=== PATIENT | male | born 1960 | race Caucasian/White ===

== ENCOUNTER 2017-10-25 21:50 | Observation (INO) ==
--- NOTE | 2017-10-25 22:19 | Emergency Department Note ---
Addendum entered and electronically signed by Campbell Whipple DO 10/26/17 01:20 : Gallbladder wall is thickened, however normal hepatic panel and no pain on palpation of the right upper quadrant. No fever. Will need a gallbladder ultrasound in the AM. Original Note: Disposition Clinical Impression: Elevated troponin, Peripheral edema Dyspnea Qualifiers: Dyspnea type: dyspnea on exertion Qualified Code(s): R06.09 - Other forms of dyspnea Acute exacerbation of CHF (congestive heart failure) Qualifiers: Congestive heart failure type: diastolic Qualified Code(s): I50.33 - Acute on chronic diastolic (congestive) heart failure Disposition: Admitted As Inpatient Condition: Good General Adult HPI - General Chief complaint: ED Extremity Problem,Nontraumatic Stated complaint: "swelling all over" Time Seen by Provider: 10/25/17 21:52 Source: patient Limitations: no limitations Nursing Notes Reviewed: Yes Vital Signs Reviewed: Yes - History of Present Illness HPI Narrative: 57-year-old male who reports he has had approximately 3 days of shortness of breath and body swelling. He reports significant swelling in his lower extremities and feeling a tightness in his abdomen and in his arms. He denies any history of this in the past. He states the only medication he currently takes his meloxicam for arthritis. He denies any chest pain. He has been coughing up some clear sputum. Denies having a fever. No nausea or vomiting. No chest pain. No history of cardiac disease. No history of congestive heart failure. He has been urinating without difficulty. Pain Scale: 0 Improves with: nothing Worsens with: nothing Associated symptoms: Reports: denies other symptoms Treatments Prior to Arrival: none - Related Data Previous Rx's Medication Instructions Recorded Albuterol Sulfate [Albuterol 2 puff IH Q6HR PRN #1 [id number].aer.[id number] 10/27/17 Inhaler] Aspirin Enteric Coated [Aspirin EC] 81 mg PO DAILY #30 tablet. 10/27/17 Furosemide [Lasix] 20 mg PO DAILY #30 tablet 10/27/17 Nicotine Patch [Nicoderm] 21 mg TD DAILY #30 patch.td24 10/27/17 Allergies Allergy/AdvReac Type Severity Reaction Status Date / Time No Known Allergies Allergy Verified 10/13/15 15:28 All systems ED: reviewed and negative except as stated. Constitutional: Denies: fever ENT ED: Denies: throat pain Cardiovascular: Denies: chest pain Respiratory: Reports: cough, dyspnea. Denies: wheezes Gastrointestinal: Denies: abdominal pain, nausea, vomiting, diarrhea Integumentary: Denies: rash Past Medical History - Past Medical History Medical history: Reports: COPD, renal disease - Social History Smoking Status: Current every day smoker Smokeless Tobacco Status: No Alcohol use: Reports: occasionally Drug use: Reports: marijuana Physical Exam - General Limitations: no limitations General appearance: alert, in no apparent distress - Head Head exam: atraumatic - Eye Eye exam: Present: normal appearance, PERRL - ENT ENT exam: normal exam, normal oropharynx - Neck Neck exam: Present: normal inspection - Chest Chest inspection: Present: normal inspection - Respiratory Respiratory exam: Present: normal lung sounds bilaterally. Absent: respiratory distress - Cardiovascular Cardiovascular exam: Present: regular rate, normal rhythm - Abdominal Exam Abdominal exam: Present: soft, Non-Tender - Extremities Exam Extremities exam: Present: pedal edema (3+ bilateral. no warmth or erythema) - Back Exam Back exam: Present: normal inspection - Neurological Exam Neurological exam: Present: alert, oriented X3, CN II-XII intact. Absent: motor sensory deficit - Psychiatric Psychiatric exam: Present: normal affect, normal mood - Skin Skin exam: Present: warm, dry Course Course Narrative: 57-year-old male with symptoms consistent with congestive heart failure. We will look for the etiology of why he is in congestive heart failure. Troponin elevated. No CP. Gave aspirin. CTA negative. No signs of pleural edema or vascular congestion. Concern for right heart failure. Will place on heparin in case this is caused by an ischemic event. No EKG changes. Accepted by kavon Vital Signs Temperature 98.2 F 10/25/17 21:55 Pulse Rate 60 10/25/17 21:55 Respiratory Rate 18 10/25/17 21:55 Blood Pressure 144/81 10/25/17 21:55 O2 Sat by Pulse Oximetry 98 10/25/17 21:55 Temperature 97.8 F 10/27/17 10:24 Pulse Rate 48 10/27/17 10:24 Respiratory Rate 16 10/27/17 10:24 Blood Pressure 110/74 10/27/17 10:24 O2 Sat by Pulse Oximetry 98 10/27/17 10:24 Oxygen Delivery Oxygen Delivery Room Air Medical Decision Making - Medical Records Medical records reviewed: Yes I reviewed the patient's medical records. - Lab Data Lab results reviewed: Yes I reviewed the patient's lab results. Result diagrams: 10/27/17 04:48 10/27/17 04:48 Lab Results 10/25/17 10/25/17 10/25/17 Range/Units 22:07 22:07 22:07 WBC 6.3 (4.3-11.1) K/mcL RBC 3.11 L (4.19-5.50) M/mcL Hgb 9.8 L (12.9-16.9) g/dL Hct 29.2 L (37.5-50.1) % MCV 93.9 (83.0-100.0) fL MCH 31.5 (28.0-33.3) pg MCHC 33.6 (31.6-35.5) g/dL RDW 13.1 (11.5-14.5) % Plt Count 262 (140-400) K/mcL MPV 9.1 L (9.4-12.4) fL Immature Gran % 0.6 (0-4) % Seg Neutrophils % 50.6 % Lymphocytes % 30.9 % Monocytes % 14.3 % Eosinophils % 3.0 % Basophils % 0.6 % Neutrophils # 3.2 (1.6-8.9) K/mcL Lymphocytes # 2.0 (0.6-4.6) K/mcL Monocytes # 0.9 (0.0-1.3) K/mcL Eosinophils # 0.2 (0.0-0.6) K/mcL Basophils # 0.0 (0.0-0.2) K/mcL Platelet Estimate Normal (Normal) PT 11.7 (9.4-12.1) Seconds INR 1.1 APTT 32.7 (26.0-36.0) Seconds D-Dimer 1165 H (0-500) ng/mLFEU Sodium (136-145) mEq/L Potassium (3.5-5.1) mEq/L Chloride (98-107) mEq/L Carbon Dioxide (23-29) mEq/L BUN (6-20) mg/dL Creatinine (0.70-1.30) mg/dL Est GFR ( Amer) (> 60) Est GFR (Non-Af Amer) (> 60) BUN/Creatinine Ratio (6-26) Glucose (70-105) mg/dL Calculated Osmolality (280-300) Calcium (8.6-10.3) mg/dL Total Bilirubin (0.3-1.0) mg/dL Direct Bilirubin (0.0-0.2) mg/dL Indirect Bilirubin (0.0-1.2) mg/dL AST (13-39) Units/L ALT (7-52) Units/L Alkaline Phosphatase (34-104) Units/L Troponin I (< 0.04) ng/mL B-Natriuretic Peptide 180 H (Less than 100) pg/mL Serum Total Protein (6.4-8.9) g/dL Albumin (3.5-5.7) g/dL Globulin (2.4-3.5) g/dL Albumin/Globulin Ratio (1.1-2.2) 10/25/17 10/25/17 Range/Units 22:07 22:07 WBC (4.3-11.1) K/mcL RBC (4.19-5.50) M/mcL Hgb (12.9-16.9) g/dL Hct (37.5-50.1) % MCV (83.0-100.0) fL MCH (28.0-33.3) pg MCHC (31.6-35.5) g/dL RDW (11.5-14.5) % Plt Count (140-400) K/mcL MPV (9.4-12.4) fL Immature Gran % (0-4) % Seg Neutrophils % % Lymphocytes % % Monocytes % % Eosinophils % % Basophils % % Neutrophils # (1.6-8.9) K/mcL Lymphocytes # (0.6-4.6) K/mcL Monocytes # (0.0-1.3) K/mcL Eosinophils # (0.0-0.6) K/mcL Basophils # (0.0-0.2) K/mcL Platelet Estimate (Normal) PT (9.4-12.1) Seconds INR APTT (26.0-36.0) Seconds D-Dimer (0-500) ng/mLFEU Sodium 138 (136-145) mEq/L Potassium 3.6 (3.5-5.1) mEq/L Chloride 109 H (98-107) mEq/L Carbon Dioxide 24 (23-29) mEq/L BUN 17 (6-20) mg/dL Creatinine 0.86 (0.70-1.30) mg/dL Est GFR ( Amer) > 60 (> 60) Est GFR (Non-Af Amer) > 60 (> 60) BUN/Creatinine Ratio 20 (6-26) Glucose 113 H (70-105) mg/dL Calculated Osmolality 288 (280-300) Calcium 8.2 L (8.6-10.3) mg/dL Total Bilirubin 0.5 (0.3-1.0) mg/dL Direct Bilirubin 0.1 (0.0-0.2) mg/dL Indirect Bilirubin 0.4 (0.0-1.2) mg/dL AST 15 (13-39) Units/L ALT 10 (7-52) Units/L Alkaline Phosphatase 52 (34-104) Units/L Troponin I 0.18 H* (< 0.04) ng/mL B-Natriuretic Peptide (Less than 100) pg/mL Serum Total Protein 5.6 L (6.4-8.9) g/dL Albumin 3.3 L (3.5-5.7) g/dL Globulin 2.3 L (2.4-3.5) g/dL Albumin/Globulin Ratio 1.4 (1.1-2.2) - Radiology Data Radiology results reviewed: Yes I reviewed the patient's radiology results. - EKG Data EKG #1 EKG attestation: Yes I reviewed and interpreted this EKG. EKG shows normal: sinus rhythm Rate: normal Rhythm: NSR [place]/QRS: normal When compared to previous EKG there are: no significant changes Interpretation: nonspecific ST-T wave changes Attestation Statement - Attestation Attestation: I examined this patient and my medical decision-making was reviewed with the Resident Physician. I agree with the documented findings, disposition and treatment plan as described except to the extent set forth below. Findings consistent with heart failure. We will start heparin drip. Patient will be admitted to hospital for further evaluation. I spent greater than 35 minutes of critical care time actively resuscitating this acutely ill patient suffering from heart failure requiring a heparin drip. This was excluding billable procedures.
[2017-10-25 22:37] LABS: Basophils % 0.6 %; Eosinophils # 0.2 K/mcL (0.0-0.6); Hematocrit 29.2 % (37.5-50.1); Hemoglobin 9.8 g/dL (12.9-16.9); Immature Granulocytes % 0.6 % (0-4); Lymphocytes % 30.9 %; Mean Corpuscular HGB Conc 33.6 g/dL (31.6-35.5); Mean Corpuscular Hemoglobin 31.5 pg (28.0-33.3); Mean Corpuscular Volume 93.9 fL (83.0-100.0); Mean Platelet Volume 9.1 fL (9.4-12.4); Monocytes # 0.9 K/mcL (0.0-1.3); Monocytes % 14.3 %; Neutrophils # 3.2 K/mcL (1.6-8.9); Platelet Count 262 K/mcL (140-400); Red Blood Count 3.11 M/mcL (4.19-5.50); Red Cell Distribution Width 13.1 % (11.5-14.5); Segmented Neutrophils % 50.6 %
[2017-10-25 22:42] LABS: INR 1.1; Prothrombin Time 11.7 Seconds (9.4-12.1)
[2017-10-25 22:44] LABS: Activated Partial Thrombo Time 32.7 Seconds (26.0-36.0)
[2017-10-25 22:54] LABS: Alanine Aminotransferase 10 Units/L (7-52); Albumin 3.3 g/dL (3.5-5.7); Albumin/Globulin Ratio 1.4 (1.1-2.2); Alkaline Phosphatase 52 Units/L (34-104); Aspartate Amino Transferase 15 Units/L (13-39); BUN/Creatinine Ratio 20 (6-26); Bilirubin,Direct 0.1 mg/dL (0.0-0.2); Bilirubin,Indirect 0.4 mg/dL (0.0-1.2); Bilirubin,Total 0.5 mg/dL (0.3-1.0); Blood Urea Nitrogen 17 mg/dL (6-20); Calcium 8.2 mg/dL (8.6-10.3); Carbon Dioxide 24 mEq/L (23-29); Chloride 109 mEq/L (98-107); Globulin 2.3 g/dL (2.4-3.5); Glucose 113 mg/dL (70-105); Osmolality,Calculated 288 (280-300); Potassium 3.6 mEq/L (3.5-5.1); Sodium 138 mEq/L (136-145); Total Protein 5.6 g/dL (6.4-8.9); eGFR For African Americans > 60 (> 60); eGFR For Non-African Americans > 60 (> 60)
[2017-10-25 22:57] LABS: Platelet Estimate Normal (Normal)
[2017-10-26] MEDS ORDERED: Furosemide 20 MG/2 ML VIAL IVP ONE (01:01)
[2017-10-26] MEDS ORDERED: Aspirin 325 MG TABLET PO ONE (01:01)
[2017-10-26] MEDS ORDERED: *HR* Heparin 5,000 UNIT/ML VIAL IVP PRN ×2 (01:13)
[2017-10-26] MEDS ORDERED: *HR* Heparin 5,000 UNIT/ML VIAL IVP ONE (01:13)
[2017-10-26] MEDS: Heparin 25,000 UNIT/500 ML D5W 25,000 UNIT/500 ML BAG IVC SCH (01:30)
[2017-10-26] MEDS ORDERED: Ondansetron 4 MG/2 ML VIAL IVP PRN (04:24)
[2017-10-26] MEDS ORDERED: Naloxone 0.4 MG/ML INJ IVP PRN (04:24)
--- NOTE | 2017-10-26 05:06 | Internal Med History&Physical ---
Date of Encounter: 10/26/17 Time of Encounter: 05:00 Assessment and Plan (1) Acute exacerbation of CHF (congestive heart failure) Current visit: Yes Status: Acute Based on clinical picture - TTE pending. Patient received 20mg IV lasix in ED, diuresing on arrival to floor. Unclear etiology, concern for possible ischemic event given elevated troponin. - TTE ordered, pending - Cardiology consulted, appreciate assistance Qualifiers: Congestive heart failure type: unspecified congestive heart failure type Qualified Code(s): I50.9 - Heart failure, unspecified (2) Elevated troponin Current visit: Yes Status: Acute Troponin 0.18 - could be strain from CHF, however ischemia is also possible. No chest pain. EKG without ischemic changes - Trend troponin - ASA, heparin - Cardiology consulted, appreciate assistance (3) Dyspnea Current visit: Yes Status: Acute Secondary to COPD, likely new CHF, etc Qualifiers: Dyspnea type: dyspnea on exertion Qualified Code(s): R06.09 - Other forms of dyspnea (4) Peripheral edema Current visit: Yes Status: Acute Likely secondary to new CHF - TTE pending. Internal Medicine - H&P: HPI Chief complaint: Shortness of breath Admitted From: Emergency Dept Plans for Post Hospital Care: Home History of present illness: Mr. Olson is a 57 year old male with history of COPD who presented to the ED this morning with complaint of shortness of breath and edema which have worsened over the past three days. He developed a URI one week ago and had a cough productive of white phlegm. He noticed three days ago that his lower extremities were edematous and then yesterday noticed scrotal edema, which is what caused him to go to the ED for evaluation. In the ED he was found to have lower extremity edema and troponin was elevated at 0.18. He denies any history of heart disease, and has not had any chest pain. Past Med Surg Social Fam HX - Past Medical History Medical history: COPD, renal disease Psychiatric history: no psych history - Past Surgical History Surgical History: herniorrhaphy - Social History Smoking Status: Current every day smoker Packs per day: 1 Smokeless Tobacco Status: No Alcohol use: occasionally Drug use: marijuana - Family History Mother Living Status: Cause of : Cancer Hx Family Cancer: Yes (Lung, brain) Internal Medicine - H&P: Meds Polymyxn-B/Trimeth Opth Drops [Polytrim Opth Drops] 1 drop LEFT EYE QID #1 bottle 10/13/15 [Rx] Proair Respiclick 10/13/15 [History] 3 Allergy/AdvReac Type Severity Reaction Status Date / Time No Known Allergies Allergy Verified 10/13/15 15:28 All Systems PM: A 10-system review of systems was performed and is negative for pertinent findings except as documented above in the HPI. - Constitutional Vitals: Temp Pulse Resp BP Pulse Ox 97.9 F 59 17 127/84 99 10/26/17 03:53 10/26/17 03:53 10/26/17 03:53 10/26/17 03:53 10/26/17 03:53 General appearance: Present: A&O X 3, pleasant, no acute distress - Head Head exam: Present: atraumatic - Eye Eye exam: Present: EOMI, sclera anicteric - ENT ENT exam: Present: mucous membranes moist - Neck Neck exam general surgery: Present: supple - Respiratory Respiratory exam: Present: CTAB - Cardiovascular Cardiovascular exam: Present: RRR. Absent: diastolic murmur, gallop, rubs, systolic murmur - GI/Abdominal GI/Abdominal exam: Present: normal bowel sounds, soft. Absent: distended, tenderness - Extremities Exam Extremities exam: Present: pedal edema (2+ edema bilateral lower extremities ) - Neurological Exam Neurological exam: Present: no focal deficits - Skin Skin exam: Absent: rash Internal Med - H&P Results - Labs CBC & Chem 7: 10/25/17 22:07 10/25/17 22:07
[2017-10-26] MEDS ORDERED: Aspirin 325 MG TABLET PO SCH (09:00)
--- NOTE | 2017-10-26 09:37 | Cardiology Consult Note ---
<Nura Gomez - Last Filed: 10/26/17 15:20> Date of Encounter: 10/26/17 Time of Encounter: 09:30 Assessment and Plan (1) Lower extremity edema Current Visit: Yes Status: Acute No prior dx of CHF; initial concern for possible ischemic event given elevated troponin. -Patient received 20mg IV lasix in ED -BNP elevated at 180 -D dimer 1165; CTA showed no evidence of PE -CXR showed no acute process -ECHO was ordered; unremarkable -Apneic episode lasting approximatley 20 seconds while patient was sleeping upon entry into room; possible KIERRA Plan -Currently on heparin drip -Continuous caardiac monitoring -Cardiac diet -Night pulse ox, evaluate for KIERRA (2) Elevated troponin Current Visit: Yes Status: Acute Troponin 0.18 - could be strain from CHF, however ischemia is also possible. No chest pain; EKG without ischemic changes -Trend troponin; 0.18, 0.18 -ASA, heparin (3) Tobacco abuse Current Visit: Yes Status: Acute Discussion w patient/family: The assessment and plan as outlined above was discussed with the patient and/or family members who expressed understanding and agreement. All questions were answered. Thank you for involving us in the care of your patient. Please call with any questions. History of Present Illness Consult date: 10/26/17 History of present illness: Mr. Olson is a 57 year old male with a PMH of arthritis and COPD who presented to the ED with the chief complaint of SOB and body swelling of 3 days ' duration. Reported significant swelling in his lower extremities and scrotum , as well as a tightness in his abdomen and arms. No prior history of swelling. Denies having any cardiac history. The only medication that he takes his meloxicam for his arthritis. Patient also admits that he developed a URI approximately one week ago; has been coughing up some clear sputum. Upon arrival to the emergency department, patient's blood pressure was slightly elevated at 144/81. All other vital signs were within normal limits. Laboratory examination was significant for an elevated troponin of 0.18. Patient denied having any chest pain. He was given aspirin and was placed on heparin drip. Patient was seen and examined at bedside this morning. States that his swelling has decreased since admission. No chest pain, SOB, or cough at this time. Past Med Surg Social Fam HX - Past Medical History Medical history: COPD, renal disease Psychiatric history: no psych history - Past Surgical History Surgical History: herniorrhaphy - Social History Smoking Status: Current every day smoker Packs per day: 1 Smokeless Tobacco Status: No Alcohol use: occasionally Drug use: marijuana - Family History Mother Living Status: Cause of : Cancer Hx Family Cancer: Yes (Lung, brain) Medications and Allergies No Known Home Drugs 10/26/17 [History] 3 Allergy/AdvReac Type Severity Reaction Status Date / Time No Known Allergies Allergy Verified 10/13/15 15:28 All Systems Review: A 10-system review of systems was performed and is negative for pertinent findings except as documented above in the HPI. Physical Examination Vital Signs, Last 4 Hours Temp Pulse Resp BP Pulse Ox 10/26/17 07:46 98.0 F 64 14 135/94 97 Results 10/25/17 22:07 10/25/17 22:07 Lab Results 10/26/17 10/26/17 07:16 07:16 APTT 72.8 H D Troponin I 0.18 H* Consult Discharge Plan - Plan Referrals: Evelio Oates MD [Primary Care Provider] - <Milind Fernandez - Last Filed: 10/26/17 18:51> Date of Encounter: 10/26/17 Time of Encounter: 15:00 - Attending Attestation I examined this patient and my medical decision-making was reviewed with the Resident Physician. I agree with the documented findings, disposition and treatment plan as described except to the extent set forth below. 1. Elevated troponin: troponin elevated, trend is adynamic, no symptoms of chest pain, pressure, however multiple risk factors, will order treadmill cardiolyte stress test for AM 2. Lower extremity and scrotal edema, unclear etiology, has resolved, LV function normal on Echo, no significant diastolic impairment, not clearly cardiac etiology, will monirot rhythm and pulse ox overnight, may have degree of right heart failure due to untreated nocturnal hypoxia 3. Tobacco abuse: pt is interested in pharmacologic aids to smoking cessation. 4. COPD - reports using his nebulizer much more frequently over last several days with decreased exercise tolerance due to shortness of breath., improving on current therapy. Assessment and Plan Discussion w patient/family: The assessment and plan as outlined above was discussed with the patient and/or family members who expressed understanding and agreement. All questions were answered. Thank you for involving us in the care of your patient. Please call with any questions. History of Present Illness History of present illness: Mr. Olson is a 57 year old male All Systems Review: A 10-system review of systems was performed and is negative for pertinent findings except as documented above in the HPI. Physical Examination Vital Signs, Last 4 Hours Temp Pulse Resp BP Pulse Ox 10/26/17 15:32 98.1 F 63 14 143/92 97 Results 10/25/17 22:07 10/25/17 22:07 Lab Results 10/26/17 10/26/17 10/26/17 07:16 07:16 13:04 APTT 72.8 H D Troponin I 0.18 H* 0.19 H* 10/26/17 13:04 APTT 46.7 H Troponin I
[2017-10-26] MEDS: Furosemide 20 MG/2 ML VIAL IVP SCH (15:51)
--- NOTE | 2017-10-26 15:53 | Internal Med Progress Note ---
Date of Encounter: 10/26/17 Time of Encounter: 15:51 - Assessment and plan (1) NSTEMI (non-ST elevated myocardial infarction) Current Visit: Yes Status: Acute Assessment and plan: His troponins are stable at 0.18 No acute EKG changes Echo came back as preserved LVEF @ 60-65%, Normal RV structure and function, indetermiante LV diastolic function He does have mild diastolic CHF exacerbation cont IV lasix 20mg BID strict I & O Cont ASA Cont Heparin for 24hrs.. waiting on Card eval (2) Acute exacerbation of CHF (congestive heart failure) Current Visit: Yes Status: Acute Assessment and plan: see above Qualifiers: Congestive heart failure type: diastolic Qualified Code(s): I50.33 - Acute on chronic diastolic (congestive) heart failure (3) Lower extremity edema Current Visit: Yes Status: Acute Assessment and plan: due to CHF exacerbation cont Lasix (4) Tobacco abuse Current Visit: Yes Status: Acute Assessment and plan: counseled to quit on nicotine patch (5) COPD (chronic obstructive pulmonary disease) Current Visit: Yes Status: Chronic Assessment and plan: not in exacerbation will put him on duoneb PRN Qualifiers: Qualified Code(s): J44.9 - Chronic obstructive pulmonary disease, unspecified - Subjective Interval history: Mr. Olson is a 57 year old male with history of COPD who presented to the ED with progressively worsening SOB, BARRERA and Orthopnea. Also c/o b/l ankle edema. His Troponin were significantly elevated @ 0.18. He did have some chest tightness y/d, but however he denied any CP or tightness now. - Constitutional Vitals: Temp Pulse Resp BP Pulse Ox 98.1 F 63 14 143/92 97 10/26/17 15:32 10/26/17 15:32 10/26/17 15:32 10/26/17 15:32 10/26/17 15:32 General appearance: Present: A&O X 3, pleasant, no acute distress - Head Head exam: Present: atraumatic, normal inspection - Neck Neck exam general surgery: Present: supple - Respiratory Respiratory exam: Present: decreased breath sounds, wheezes (mild). Absent: rales, respiratory distress, rhonchi - Cardiovascular Cardiovascular exam: Present: RRR, +S1, +S2. Absent: diastolic murmur, gallop, rubs, systolic murmur - GI/Abdominal GI/Abdominal exam: Present: normal bowel sounds, soft, no peritoneal signs. Absent: distended, tenderness - Extremities Exam Extremities exam: Present: pedal edema (1+ b/l ankle edema). Absent: calf tenderness, tenderness - Back Exam Back exam: Absent: CVA tenderness (L), CVA tenderness (R) - Neurological Exam Neurological exam: Present: alert, oriented X3 - Psychiatric Psychiatric exam: Present: normal affect, normal mood Internal Medicine: Result - Labs CBC & Chem 7: 10/25/17 22:07 10/25/17 22:07 Labs: Cardiac Enzymes 10/26/17 10/26/17 Range/Units 07:16 13:04 Troponin I 0.18 H* 0.19 H* (< 0.04) ng/mL - ABG Interpretation ABG results: PT/INR, D-dimer PT 11.7 Seconds (9.4-12.1) 10/25/17 22:07 D-Dimer 1165 ng/mLFEU (0-500) H 10/25/17 22:07 - Impressions Impressions Echocardiogram 10/26/17 04:26 Impressions: LVEF 60-65%. Normal right ventricular structure and function. Redundant mitral valve chordae with chordal SUDEEP. No significant mitral regurgitation. No LVOT obstruction. No pulmonary hypertension. Left Ventricular Wall Motion: Rest Echo Findings All wall segments showed normal motion. Findings: Study Quality * Technically adequate exam. ECG Findings * Sinus bradycardia. Left Ventricle * LVEF 60-65%. * Normal LV chamber size, wall thickness and function. * Indeterminate diastolic function. Right Ventricle * Normal right ventricular structure and function. Left Atrium * Normal left atrial size. Right Atrium * Normal right atrial size. Aortic Valve * No aortic regurgitation. * Trileaflet aortic valve. * No aortic stenosis. Mitral Valve * No mitral stenosis. * Redundant chordae with chordal SUDEEP. No LVOT obstruction. * Trace mitral regurgitation. Tricuspid Valve * Normal tricuspid valve structure. * Trace tricuspid regurgitation. * Estimated RA pressure is 3 mmHg. * Estimated RVSP is 23 mmHg. * No pulmonary hypertension. Pulmonic Valve * Pulmonic valve is not well visualized. * No pulmonic stenosis. * No pulmonic regurgitation. Pulmonary Artery * Pulmonary artery not well visualized. Aorta * Normally sized aortic root. Pericardium * There is no pericardial effusion present. Interatrial Septum * No evidence of PFO by color Doppler. IVC * Normal IVC dimensions and inspiratory collapse. - VTE Documentation of Mechanical Device: Intermittent pneumatic compression device Consult Discharge Plan - Plan Referrals: Evelio Oates MD [Primary Care Provider] -
[2017-10-26] MEDS: Nicotine 21 MG PATCH.TD24 TD SCH (17:08)
[2017-10-27] MEDS: Heparin 25,000 UNIT/500 ML D5W 25,000 UNIT/500 ML BAG IVC SCH (00:54)
[2017-10-27 05:07] LABS: Basophils % 0.7 %; Eosinophils # 0.2 K/mcL (0.0-0.6); Eosinophils % 2.6 %; Hematocrit 29.8 % (37.5-50.1); Hemoglobin 10.2 g/dL (12.9-16.9); Immature Granulocytes % 0.3 % (0-4); Lymphocytes # 1.7 K/mcL (0.6-4.6); Mean Corpuscular HGB Conc 34.2 g/dL (31.6-35.5); Mean Corpuscular Hemoglobin 31.4 pg (28.0-33.3); Mean Corpuscular Volume 91.7 fL (83.0-100.0); Mean Platelet Volume 9.1 fL (9.4-12.4); Monocytes # 0.8 K/mcL (0.0-1.3); Monocytes % 12.4 %; Neutrophils # 3.4 K/mcL (1.6-8.9); Platelet Count 279 K/mcL (140-400); Red Blood Count 3.25 M/mcL (4.19-5.50); Red Cell Distribution Width 13.2 % (11.5-14.5)
[2017-10-27 05:11] LABS: BUN/Creatinine Ratio 17 (6-26); Blood Urea Nitrogen 14 mg/dL (6-20); Calcium 8.2 mg/dL (8.6-10.3); Carbon Dioxide 28 mEq/L (23-29); Chloride 108 mEq/L (98-107); Chol/HDL Ratio 2.8 (0-4.9); Cholesterol 108 mg/dL (< 200); Glucose 103 mg/dL (70-105); HDL Cholesterol 38 mg/dL (40-59); LDL Cholesterol,Calculated 56 mg/dL (0-99); Magnesium 1.9 mg/dL (1.6-2.6); Osmolality,Calculated 289 (280-300); Sodium 139 mEq/L (136-145); Triglycerides 69 mg/dL (< 150); eGFR For African Americans > 60 (> 60); eGFR For Non-African Americans > 60 (> 60)
[2017-10-27] MEDS ORDERED: Regadenoson 0.4 MG/5 ML SYRINGE IVP ONE (06:13)
[2017-10-27] MEDS ORDERED: Aspirin Enteric Coated 81 MG Tablet PO SCH (09:00)
[2017-10-27 10:25] VITALS: BP 110/74
[2017-10-27] MEDS: Nicotine 21 MG PATCH.TD24 TD SCH (11:02)
[2017-10-27] MEDS: Furosemide 20 MG/2 ML VIAL IVP SCH (11:02)
--- NOTE | 2017-10-27 14:45 | Discharge Summary ---
Date of Encounter: 10/27/17 Time of Encounter: 14:40 - Discharge Diagnosis (1) NSTEMI (non-ST elevated myocardial infarction) Priority: Primary Status: Acute (2) Acute exacerbation of CHF (congestive heart failure) Priority: Primary Status: Acute Qualifiers: Congestive heart failure type: diastolic Qualified Code(s): I50.33 - Acute on chronic diastolic (congestive) heart failure (3) Lower extremity edema Priority: Secondary Status: Acute (4) Tobacco abuse Priority: Secondary Status: Acute (5) COPD (chronic obstructive pulmonary disease) Priority: Secondary Status: Chronic Qualifiers: Qualified Code(s): J44.9 - Chronic obstructive pulmonary disease, unspecified - Discharge Medications Prescriptions: Albuterol Sulfate [Albuterol Inhaler] 2 puff IH Q6HR PRN #1 hfa.aer.ad PRN Reason: Shortness Of Breath Aspirin Enteric Coated [Aspirin EC] 81 mg PO DAILY #30 tablet. Furosemide [Lasix] 20 mg PO DAILY #30 tablet Nicotine Patch [Nicoderm] 21 mg TD DAILY #30 patch.td24 Home Medications: Albuterol Sulfate [Albuterol Inhaler] 2 puff IH Q6HR PRN #1 hfa.aer.ad 10/27/17 [Rx] Aspirin Enteric Coated [Aspirin EC] 81 mg PO DAILY #30 tablet. 10/27/17 [Rx] Furosemide [Lasix] 20 mg PO DAILY #30 tablet 10/27/17 [Rx] Nicotine Patch [Nicoderm] 21 mg TD DAILY #30 patch.td24 10/27/17 [Rx] Allergies/Adverse Reactions: 3 Allergy/AdvReac Type Severity Reaction Status Date / Time No Known Allergies Allergy Verified 10/13/15 15:28 Procedures/tests Complete & Pending: Procedures Performed prior 72 hours Category Date Time Status NM marivel perf SPECT multi [NM] Routine Exams 10/26/17 16:24 Taken EV echocardiogram Routine Y 10/26/17 04:26 Completed SP pharm nuclear stress Routine Y 10/26/17 16:24 Completed Date of admission: 10/26/17 01:30 Primary care physician: Evelio Oates MD Consults: 10/26/17 04:25 Consult to Cardiology [CONS] Routine Comment: Consulting Provider: [facility] [place] Reason for Consult: trop elevation, concern for new CHF Call Completed: No - Patient Status Disposition: Home, Self-Care Condition: Good Overall status at discharge: patient is back to baseline - Discharge Instructions Instructions: Chronic Obstructive Pulmonary Disease (DC) Follow Up With: Katerin Roque, JOSE ROBERTO [Advanced Practice Nurse] - 11/08/17 10:00 am Milind Fernandez DO [Partnered Physician] - Additional Instructions: Please talk to your Primary Care Physician to set you up with a referral to Dr. Arango's office (pulmonology) for an outpatient sleep study to diagnose or rule out Sleep Apnea. - Diet and Activity Activity: increase activity as tolerated Diet: low salt diet Hospital course: Mr. Olson is a 57 year old male with history of COPD who presented to the ED with progressively worsening SOB, BARRERA and Orthopnea. Also c/o b/l ankle edema. His Troponin were significantly elevated @ 0.18. Pt was admitted in the hospital and placed him on court recording monitor and started him heparin gtt. His troponinn stayed stable @ 0.17. He was also give IV lasix, his SOB, orthopnea and b/l LE edema improved. Pt was evaluated by Cardiology, who did non nuclear stress test which came back as negative for any ischemia. His 2 D Echo showed preserved LVEF, indeterminate diastolic function. Horizontal Drill Operator is concerned about Rt heart failure, recommend sleep studies as an out pt. Counseled the pt to quit smoking. Will d/c him home in stable condition with ASA and Lasix.. Unable to give Metoprolol due to sinus drea and BP running little low - Time Spent with Patient Total time spent providing and/or coordinating discharge services: - Constitutional Vitals: Temp Pulse Resp BP Pulse Ox 97.8 F 48 16 110/74 98 10/27/17 10:24 10/27/17 10:24 10/27/17 10:24 10/27/17 10:24 10/27/17 10:24 General appearance: Present: A&O X 3, pleasant, no acute distress - Head Head exam: Present: atraumatic, normal inspection - Neck Neck exam general surgery: Present: supple - Respiratory Respiratory exam: Present: decreased breath sounds. Absent: accessory muscle use, rales, rhonchi, wheezes - Cardiovascular Cardiovascular exam: Present: RRR, +S1, +S2. Absent: diastolic murmur, gallop, rubs, systolic murmur - GI/Abdominal GI/Abdominal exam: Present: normal bowel sounds, soft. Absent: rebound, rigid, tenderness - Extremities Exam Extremities exam: Absent: calf tenderness, pedal edema (improved), tenderness - Back Exam Back exam: Absent: CVA tenderness (L), CVA tenderness (R) - Neurological Exam Neurological exam: Present: alert, oriented X3 - VTE Documentation of Mechanical Device: Intermittent pneumatic compression device
[2017-10-27] MEDS ORDERED: FLUBLOK QUAD 17/18 (18YR UP)/PF 0.5 ML SYRINGE IM ONE (14:53)
[2017-10-27] MEDS ORDERED: FLUARIX QUAD 2017-18 36MOS UP/PF 0.5 ML SYRINGE IM ONE (14:59)
--- NOTE | 2017-10-27 19:26 | Electrocardiograph Report ---
[place] [id number] Test Date: 2017-10-25 Pat Name: Tra Olson Department: 104 Room: 2NE27 Gender: M Brand Recorder: : [id number] Requested By: Campbell Whipple Order Number: [id number] Reading MD: Paul Nation MD Measurements Intervals [place] Rate: 60 P: 74 SC: 126 QRS: 21 QRSD: 92 T: 47 QT: 400 QTc: 401 Interpretive Statements SINUS RHYTHM BASELINE ARTIFACT Electronically Signed On 10-27-2017 19:25:17 EST by Paul Nation MD
== END 2017-10-27 18:06 | disposition home or self-care (01) ==
LOC: 2NENU 21:50 → EMEROO 21:50 → 2NENU 10-26 02:15
PROVIDERS: ADMIT Internal Medicine; ATTEND Family Medicine